=== PATIENT | male | born 1990 | race Caucasian/White ===

== ENCOUNTER 2022-06-11 23:58 | Inpatient (IN) | payer MEDICAID ==
[~2022-06-11] VITALS: Ht 177.8 cm; Wt 84.5 kg
[2022-06-12] MEDS ORDERED: LEVETIRACETAM 500MG PREMIX 100 ML IV ONE (00:30)
[2022-06-12] MEDS ORDERED: DIAZEPAM 5 MG/ML 2ML CPJ IV ONE (00:30)
[2022-06-12 00:44] LABS: BASOPHILS % 0.6 % (0.0-2.0); EOSINOPHILS % 2.3 % (0.0-5.0); HEMATOCRIT. 47.8 % (42.0-52.0); HEMOGLOBIN. 16.7 g/dL (14.0-18.0); LYMPHOCYTES % 40.4 % (20.0-50.0); MEAN CORPUSCULAR HEMOGLOBIN 31.9 pg (28.0-32.0); MEAN CORPUSCULAR VOLUME 91.3 fL (80.0-94.0); MEAN PLATELET VOLUME 8.5 fl (7.4-10.4); MONOCYTES % 6.9 % (2.0-8.0); NEUTROPHILS % 49.8 % (40.0-76.0); PLATELET 220 x1000/uL (130-400); RED BLOOD CELL COUNT 5.24 mill/uL (4.7-6.1); RED CELL DISTRIBUTION WIDTH 12.9 % (11.6-14.6)
[2022-06-12 00:50] LABS: CHLORIDE 104 mEq/L (98-107)
[2022-06-12 00:58] LABS: ETHANOL BLOOD < 10 mg/dL
[2022-06-12] MEDS ORDERED: DIAZEPAM 5 MG/ML 2ML CPJ IV NR (01:00)
[2022-06-12] MEDS ORDERED: POTASSIUM CHLORIDE 20MEQ TABLET SR PO NR (02:15)
[2022-06-12] MEDS ORDERED: ACETAMINOPHEN 500MG TABLET PO ONE (02:30)
[2022-06-12] MEDS ORDERED: MIDAZOLAM HCL 2 MG/2 ML VIAL IV ONE (03:30)
[2022-06-12] MEDS ORDERED: CLONIDINE 0.1MG TABLET PO PRN (08:00)
[2022-06-12] MEDS ORDERED: ONDANSETRON HCL 4MG/2ML INJ IV PRN (08:00)
[2022-06-12] MEDS ORDERED: IPRATROPIUM/ALBUTEROL 0.5-3(2.5)MG/3ML NEB HHN PRN (08:00)
[2022-06-12] MEDS ORDERED: HYDROCODONE/APAP 7.5/325MG 1 TAB TABLET PO PRN (08:00)
[2022-06-12] MEDS ORDERED: LORAZEPAM 0.5MG TABLET PO PRN (08:00)
[2022-06-12] MEDS ORDERED: ACETAMINOPHEN 325MG TABLET PO PRN ×2 (08:00)
[2022-06-12] MEDS ORDERED: LEVETIRACETAM 500MG PREMIX 100 ML IV SCH ×2 (09:00→13:00)
[2022-06-12] MEDS ORDERED: DOCUSATE SODIUM 100MG CAPSULE PO PRN (09:00)
[2022-06-12 09:23] VITALS: BP 114/67
[2022-06-12 10:00] VITALS: BP 110/59
[2022-06-12] MEDS ORDERED: LEVE1000 MT (11:58)
[2022-06-12 12:00] VITALS: BP 99/54
[2022-06-12 14:00] VITALS: BP 107/61
[2022-06-12 15:23] VITALS: BP 107/61
[2022-06-12 16:00] VITALS: BP 111/71
== END 2022-06-12 17:10 | disposition home or self-care (01) | DRG 53 ==
LOC: ER 23:58 → 5EST 06-12 04:38 → ENRESERV 06-12 07:25
PROVIDERS: ADMIT Internal Medicine; ATTEND Internal Medicine
DX: G40.901 Epilepsy, unspecified, not intractable, with status epilepticus (principal); E87.6 Hypokalemia; Z91.14 Patient's other noncompliance with medication regimen; Z79.899 Other long term (current) drug therapy
CPT/HCPCS: 36415; 80053; 80320; 82962; 85025; 99291; J1953; J2250; J7050; G0480